=== PATIENT | female | born 1965 | race Caucasian/White ===

== ENCOUNTER 2022-07-30 08:32 | Outpatient (CLI) | payer OTHER | END 2022-07-30 23:59 | disposition home or self-care (01) | LOC: LAB 08:32 | PROVIDERS: ATTEND Specialist | DX: Z01.812 Encounter for preprocedural laboratory examination (principal); Z20.822 Contact with and (suspected) exposure to COVID-19 | CPT/HCPCS: U0003; C9803 ==

== ENCOUNTER 2022-08-18 05:58 | Day surgery (SDC) | payer OTHER ==
[~2022-08-18] VITALS: Ht 152.4 cm; Wt 70.3 kg
--- NOTE | 2022-08-18 06:49 | NUR ---
RN Opening Notes Patient arrived ambulating on unit @ 0610. AOx4, able to make needs known. On RA and tolerating well. No SOB noted. No s/sx of respiratory distress noted. Safety precautions in place: bed in lowest, locked position, siderails upX2, and brakes on. Table and call light within reach. All needs met at this time. Addendum: 08/18/22 at 0652 by BRIAN BOND RN Consents signed. Per patient NPO since 2033. Voided at approximately 0615.
[2022-08-18] MEDS ORDERED: ANESTHESIA TRAY IN PYXIS 1 EA TRAY MC ONE (07:20)
--- NOTE | 2022-08-18 07:22 | NUR ---
RN OPENING NOTES: RECEIVED PT AWAKE, A/O X4. DAUGHTER AT BEDSIDE. ON RA WITH NO S/S OF SOB, DENIES PAIN AT THIS TIME. NO IV ACCESS NOTED. PT IS SCHEDULED FOR R KNEE ARTHROPLASTY @ 0800. ALL CONSENTS AND CHECKLIST DONE BY PM RN, VERIFIED BY AM RN. OR STAFF PICKED UP PT, LEFT UNIT VIA GURNEY AT 0722.
[2022-08-18] MEDS ORDERED: methylPREDNISolone ACETATE 80 MG/ML VIAL ONE (07:26)
[2022-08-18] MEDS ORDERED: BUPIVACAINE 0.5 % PF 150 MG/30 ML VIAL ONE (07:27)
[2022-08-18] MEDS ORDERED: FENTANYL PF 250MCG/5ML AMPUL ONE (07:32)
[2022-08-18] MEDS ORDERED: MIDAZOLAM HCL 2 MG/2ML VIAL ONE (07:32)
[2022-08-18] MEDS ORDERED: FAMOTIDINE/PF INJ 20 MG/2 ML VIAL IV ONE ×2 (07:33→07:34)
[2022-08-18] MEDS ORDERED: LIDOCAINE HCL/MPF 1% 30 ML VIAL IJ ONE (07:51)
[2022-08-18 08:00] VITALS: BP 143/76
--- NOTE | 2022-08-18 09:25 | NUR ---
RN NOTES: PT ARRIVED IN UNIT FROM OR. S/P R KNEE ARTHROPLASTY. VITALS STABLE; BP= 141/67, HR= 68, 02 SAT= 100% ON RA, RR= 18, TEMP = 98.0. PT DENIES PAIN AT THIS TIME. NANI WRAP NOTED AT R KNEE, CDI. KEPT PT COMFORTABLE, WILL CONT TO MONITOR.
--- NOTE | 2022-08-18 12:00 | NUR ---
RN NOTES: PT REPORTS PAIN /10; RN VERIFIED MED ORDER WITH PACU AND MD, WILL MEDICATE PT ORDERED.
[2022-08-18] MEDS ORDERED: HYDROCODONE/APAP 10/325MG TABLET PO PRN ×3 (12:30)
--- NOTE | 2022-08-18 13:00 | NUR ---
RN NOTES; RN CALLED PT'S DAUGHTER FOR RIFLE CASE REPAIRER, DAUGHTER STATES SHE WILL ARRIVE AT AROUND 1400.
--- NOTE | 2022-08-18 14:05 | NUR ---
RN DC NOTES: PT IS STABLE FOR DISCHARGE, VITALS WNL, O2 SAT 99% ON RA. PAIN IS 2/10. DC DOCS, BELONGINGS AND INSTRUCTIONS DISCUSSED AND SIGNED BY PATIENT. ADDRESSED QUESTIONS AND CONCERNS APPROPRIATE, PT VERBALIZED UNDERSTANDING. IV ACCESS AND ID BAND REMOVED. PT LEFT UNIT VIA WHEELCHAIR, ESCORTED BY RN. TRANSPORTATION IS PRIVATE CAR, PT LEFT WITH DAUGHTER.
[2022-08-18 15:39] VITALS: BP 141/67
== END 2022-08-18 18:00 | disposition home or self-care (01) ==
LOC: DS 05:58 → MED 06:00 → UNDOADMIN 06:00 → UNDODISIN 14:00 → DS 18:00
PROVIDERS: ATTEND Specialist
DX: S83.231A Complex tear of medial meniscus, current injury, right knee, initial encounter (principal); J45.909 Unspecified asthma, uncomplicated; M94.261 Chondromalacia, right knee; X58.XXXA Exposure to other specified factors, initial encounter; Y93.89 Activity, other specified; Y92.89 Other specified places as the place of occurrence of the external cause; Y99.8 Other external cause status
CPT/HCPCS: 29881; 87081; J0690; J3490 ×5; J1040; J2704; J2765; J2405; J7030; J2250; A6253; A4217; J3010; G0378